=== PATIENT | female | born 1950 | race Native Hawaiian/Other Pacific Islander ===

== ENCOUNTER 2016-05-12 13:20 | Outpatient (CLI) | payer OTHER ==
[~2016-05-12 13:20] MED LIST: ASPIR-8181 MG PO; AZEL137S; CETI10TA PO; FLUNISOLIDE29 MCG; MICARDIS20 MG PO; PHENYLEPHRIN10 MG PO; PRAV40TA PO; TRILIPIX45 MG PO; VIACTIV MULT PO
[2016-05-12 13:30] LABS: PLATELET COUNT 326 K/uL (152-353)
[2016-05-12 13:45] LABS: POTASSIUM 3.4 mmol/L (3.6-5.2); SODIUM 135 mmol/L (136-145)
== END 2016-05-12 22:06 | disposition home or self-care (01) ==
LOC: LABW 13:20
PROVIDERS: Nurse Practitioner
DX: R73.9 Hyperglycemia, unspecified (principal); I10 Essential (primary) hypertension
CPT/HCPCS: 36415; 80053; 83036; 85027

== ENCOUNTER 2016-05-24 09:34 | Outpatient (CLI) | payer OTHER | END 2016-05-24 10:34 | disposition home or self-care (01) | LOC: MAMMO 09:34 | DX: Z12.31 Encounter for screening mammogram for malignant neoplasm of breast (principal) | CPT/HCPCS: G0202-TC ==

== ENCOUNTER 2017-05-30 09:37 | Outpatient (CLI) | payer OTHER | END 2017-05-30 19:47 | disposition home or self-care (01) | LOC: MAMMO 09:37 | DX: Z12.31 Encounter for screening mammogram for malignant neoplasm of breast (principal); N95.8 Other specified menopausal and perimenopausal disorders ==

== ENCOUNTER 2017-08-07 21:29 | Emergency (ER) | payer OTHER ==
[~2017-08-07] VITALS: Ht 154.9 cm; Wt 68.0 kg
[2017-08-07 21:33] VITALS: TEMP 98.6
[2017-08-07 22:27] LABS: PLATELET COUNT 348 K/uL (152-353)
[2017-08-07 22:50] LABS: POTASSIUM 4.3 mmol/L (3.6-5.2)
[2017-08-07 23:04] VITALS: BP 125/66
== END 2017-08-07 23:05 | disposition home or self-care (01) ==
LOC: ED 21:29
PROC: 0T9B70Z Drainage of Bladder with Drainage Device, Via Natural or Artificial Opening (ICD-10-PCS; principal; 2017-08-07)
DX: R39.11 Hesitancy of micturition (principal); R33.8 Other retention of urine
CPT/HCPCS: 36415; 51702; 80053; 81000; 85027; 99283

== ENCOUNTER 2018-07-02 09:14 | Outpatient (CLI) | payer OTHER | END 2018-07-02 20:27 | disposition home or self-care (01) | LOC: MAMMO 09:14 | DX: Z12.31 Encounter for screening mammogram for malignant neoplasm of breast (principal); N64.59 Other signs and symptoms in breast ==

== ENCOUNTER 2020-08-14 08:59 | Outpatient (CLI) | payer OTHER | END 2020-08-14 21:48 | disposition home or self-care (01) | LOC: MAMMO 08:59 | PROVIDERS: ATTEND Internal Medicine | DX: Z12.31 Encounter for screening mammogram for malignant neoplasm of breast (principal) ==

== ENCOUNTER 2021-09-09 10:58 | Outpatient (CLI) | payer OTHER, MEDICARE | END 2021-09-09 18:57 | disposition home or self-care (01) | LOC: MAMMO 10:58 | PROVIDERS: ATTEND Internal Medicine | DX: Z12.31 Encounter for screening mammogram for malignant neoplasm of breast (principal) ==

== ENCOUNTER 2022-01-31 11:00 | Outpatient (CLI) | payer OTHER, MEDICARE | END 2022-01-31 18:58 | disposition home or self-care (01) | LOC: RAD 11:00 | PROVIDERS: ATTEND Internal Medicine | DX: Z13.820 Encounter for screening for osteoporosis (principal); N95.8 Other specified menopausal and perimenopausal disorders ==

== ENCOUNTER 2022-09-15 09:01 | Outpatient (CLI) | payer OTHER, MEDICARE | END 2022-09-15 19:14 | disposition home or self-care (01) | LOC: MAMMO 09:01 | PROVIDERS: ATTEND Internal Medicine | DX: Z12.31 Encounter for screening mammogram for malignant neoplasm of breast (principal) ==